=== PATIENT | female | born 1990 | race Caucasian/White ===

== ENCOUNTER 2022-07-24 14:00 | Outpatient (CLI) | payer BC, SELFPAY | END 2022-07-24 14:01 | disposition home or self-care (01) | PROVIDERS: PCP Obstetrics & Gynecology; Visit Provider Obstetrics & Gynecology | DX: Z01.419 Encounter for gynecological examination (general) (routine) without abnormal findings (principal); Z13.6 Encounter for screening for cardiovascular disorders; Z13.1 Encounter for screening for diabetes mellitus | CPT/HCPCS: 80061; 82947 ==

== ENCOUNTER 2023-05-28 11:38 | Outpatient (CLI) | payer BC, SELFPAY | END 2023-05-28 11:39 | disposition home or self-care (01) | LOC: LKVREF 11:39 | PROVIDERS: PCP Obstetrics & Gynecology; Visit Provider Family Medicine | DX: Z01.818 Encounter for other preprocedural examination (principal); N92.1 Excessive and frequent menstruation with irregular cycle | CPT/HCPCS: 80048 ==

== ENCOUNTER 2023-06-02 07:40 | Day surgery (SDC) | payer BC, SELFPAY ==
[2023-06-02] MEDS: LACTATED RINGERS 1000 ML 1,000 ML 100 ML IV (07:45)
[2023-06-02 07:58] VITALS: BP 146/100; PULSE 93; RESP 16; TEMP 37.1; O2SAT 100
[2023-06-02 08:01] VITALS: BMI 20.9
[2023-06-02 08:03] LABS: Ur HCG Qualitative* Negative (Negative)
[2023-06-02] MEDS: SODIUM CHLORIDE 0.9 % (FLUSH) 10 ML SYRINGE IVF (08:20)
--- NOTE | 2023-06-02 09:18 | W.PM.GYNPROC ---
Procedure Note Date of procedure: 06/02/23 Pre-op diagnosis: Menometrorrhagia Post-op diagnosis: same Procedure: Hysteroscopy. D&C. Attempted Negar endometrial ablation, unsuccessful. Anesthesia: MAC and local Complications: None. Surgeon: Usha Mendenhall MD Estimated blood loss (mL): 10 Pathology: specimen obtained, sent to pathology (endometrial curettings) Condition: stable Disposition: same day Findings: Small narrow uterine cavity. Endometrium mildly inflamed-appearing. Procedure Description: After obtaining informed consent, the patient was taken to the operating room where she received monitored anesthesia care. She was prepared and draped in the normal sterile fashion, in the dorsal lithotomy position. An open-sided bivalve speculum was introduced into the vagina and the cervix visualized. The anterior lip of the cervix was grasped with a single-tooth tenaculum for traction. A paracervical block was then administered using a total of 20 mL of a 50/50 mixture of 0.25% Marcaine and 1% lidocaine plain. The uterus was gently sounded. Sound length was 7.5 cm. The cervix length was determined to be 3.0 cm using Hegar dilators, yielding a uterine cavity length of 4.5 cm. The cervix was gently dilated to a #6 Hegar dilator. A hysteroscope was then advanced under direct visualization through the cervix into the uterine cavity. Sterile normal saline was used as distending medium. The uterine cavity was carefully inspected with the findings noted above. The hysteroscope was then removed. The endometrial lining was then sharply curetted. The Negar device was then set to a cavity length of 4.5 cm, inserted through the cervical os into the uterine cavity to the level of the fundus, and deployed. The device was sealed against the cervix. Unfortunately, the array could not be fully deployed, as evidenced by the line on the device was 2 mm into the red zone. The device manufacture was contacted via telephone for consultation. The device was removed and reinserted a total of 4 times as, two of the attempts were with the uterine cavity length reset to 4.0 and 5.0 cm. It was recommended not to proceed with the treatment cycle with the array not fully extended. The device was removed and the ablation attempt abandon. The tenaculum was removed. There was little bleeding from the tenaculum site, which was controlled with direct pressure sponge stick. All instruments were then removed. The patient tolerated the procedure well. Sponge, lap, needle, and instrument counts reported as correct x2. The patient was taken to the recovery room awake in a stable condition. Fluid deficit was approximately 200 mL, though this is an estimate as there was fluid lost on the floor.
[2023-06-02] MEDS: BUPIVACAINE 0.25% 30 ML 10 ML INJECTION (09:49)
[2023-06-02] MEDS: LIDOCAINE 1% MDV 10 ML INJECTION (09:49)
[2023-06-02 10:20] VITALS: BP 131/79; PULSE 64; RESP 16; TEMP 36.2; O2SAT 100
--- NOTE | 2023-06-02 10:25 | W.ANESCHARGE ---
Anesthesia Charges Start Date/Time Anesthesia Start Date: 06/02/23 Anesthesia Start Time: 09:23 Stop Date/Time Anesthesia Stop Date: 06/02/23 Anesthesia Stop Time: 10:24
--- NOTE | 2023-06-02 10:31 | W.ANESCHARGE ---
Anesthesia Charges Start Date/Time Anesthesia Start Date: 06/02/23 Anesthesia Start Time: 09:23 Stop Date/Time Anesthesia Stop Date: 06/02/23 Anesthesia Stop Time: 10:24
[2023-06-02 10:45] VITALS: BP 125/89; PULSE 60; RESP 16; O2SAT 100
[2023-06-02 11:03] VITALS: BP 140/81; PULSE 71; RESP 16; O2SAT 99
== END 2023-06-02 11:32 | disposition home or self-care (01) ==
PROVIDERS: PCP Family Medicine; Visit Provider Obstetrics & Gynecology
PROC: 0UF98ZZ Fragmentation in Uterus, Via Natural or Artificial Opening Endoscopic (ICD-10-PCS; CPT 58563; principal; 2023-06-02 09:15)
DX: N92.1 Excessive and frequent menstruation with irregular cycle (principal); N84.0 Polyp of corpus uteri
CPT/HCPCS: 58563; 00952; 81025; 88305; J0665; J1100; J1885; J2405; J2704; J3010; J7120

== ENCOUNTER 2024-01-13 15:20 | Outpatient (CLI) | payer BC, SELFPAY | END 2024-01-13 15:21 | disposition home or self-care (01) | PROVIDERS: PCP Physician Assistant Medical; Visit Provider Physician Assistant Medical | DX: I10 Essential (primary) hypertension (principal); Z13.29 Encounter for screening for other suspected endocrine disorder | CPT/HCPCS: 80053; 82043; 82570; 84443 ==

== ENCOUNTER 2024-06-22 15:10 | Outpatient (CLI) | payer BC, SELFPAY | END 2024-06-22 15:11 | disposition home or self-care (01) | PROVIDERS: PCP Physician Assistant Medical; Visit Provider Physician Assistant Medical | DX: I10 Essential (primary) hypertension (principal) | CPT/HCPCS: 82088; 84244 ==